=== PATIENT | male | born 1955 | race Caucasian/White ===

== ENCOUNTER 2017-07-05 21:02 | Inpatient (IN) | payer BC ==
[~2017-07-05] VITALS: Ht 180.3 cm; Wt 104.8 kg
--- NOTE | ~2017-07-05 | CON ---
[place], [place] REPORT OF CONS[facility]ATION [id number] #: [id number] ROOM: 428 DOCTOR: KRISTEL BRADSHAW MD BIRTHDATE: [birth year] DOS: 07/06/2017 HISTORY OF PRESENT ILLNESS: This is a 62-year-old -[place] man with a history of coronary artery disease. In 1998, he had 2 stents deployed while a patient at [facility]. He has never had heart failure, any rhythm disorder, stroke, diabetes mellitus, cancer, COPD or kidney problems. He used to smoke cigars a long time ago, but no longer uses it. He had a stress test earlier last year and that was unremarkable. He came to the hospital because of acute anterior chest discomfort and heaviness along with some left shoulder discomfort, which he had stents deployed in 1998. His symptoms were more intense at that time. He has had these symptoms with exertion, which also causes shortness of breath. In fact, symptoms have been present since September of last year and have been gradually more noticeable. Also, sometimes the feeling can last for many, many hours, sometimes just for 10 minutes and it is not accompanied by palpitations, any dizziness or loss of consciousness. No sweating or nausea either. According to him and his , it seems that he has slowed down significantly because of his symptoms. HOME MEDICATIONS: Aspirin 81, atorvastatin 40 daily, ibuprofen 800 mg t.i.d. p.r.n., omeprazole 20 mg 2 tablets daily. FAMILY HISTORY: Both parents had coronary artery disease and heart attacks. PHYSICAL EXAMINATION: GENERAL: The patient is very pleasant, alert, oriented, very comfortable. He is not anemic. There is no finger clubbing or thyromegaly. VITAL SIGNS: Pulse is regular at 66 beats per minute, blood pressure 166/98, previous blood pressure has been lower. NECK: Normal JVP. No bruit in the neck. CARDIOVASCULAR: There is no cardiomegaly. Auscultation did not reveal any murmurs or rubs. He has excellent pedal pulses and no edema in the lower extremities. CHEST: Lungs are clear to percussion and auscultation. He is not tachypneic. ABDOMEN: Normal bowel sounds. No bruit. There is no organomegaly or any pulsatile mass. Two ECGs have shown normal sinus rhythm with a normal pattern. Troponin I level was less than 0.015 on admission and zoe to 0.055 and 0.098 and the last one was 0.528. BUN 17, creatinine 1.03, sodium 140, potassium 3.6, magnesium 2.0. IMPRESSION: This patient has acute coronary syndrome/possible non-ST elevation myocardial infarction. His symptoms are worrisome and therefore, I would forfeit any idea of any idea of doing a stress test and directly perform a diagnostic heart catheterization and I suspect significant coronary artery stenosis. [place], [place] REPORT OF CONSULTATION NAME: AURE LAGOS JR UNIT #: [id number] ROOM: 428 DOCTOR: LEEANN RICHARDSON,KRISTEL BIRTHDATE: [birth year] I discussed this Impression with the and the patient and recommended that an invasive evaluation be performed. The patient will think about it. He may want to go to [facility] [place] and he will let his attending know. I thank you on behalf of Dr. Mejía for this consult. KRISTEL BRADSHAW MD CM:CONSTR:REPORT OF CONSULTATION 1757 07/07/17 0119 interface
[~2017-07-05 21:02] MED LIST: ASPIRIN ADULT L81 M1 PO; LIPITOR40 MG PO; PRILOSEC20 M1 PO
[2017-07-05 21:10] VITALS: BP 157/104
[2017-07-05 21:44] LABS: BASO # 0.1 10*3/uL (0.0-0.1); BASO % 0.8 % (0.0-1.0); EOS # 0.3 10*3/uL (0.0-0.4); EOS % 3.1 % (1.0-4.0); HEMATOCRIT 45.5 % (42.0-52.0); HEMOGLOBIN 15.6 g/dl (14.0-18.0); LYMPH # 2.4 10*3/uL (1.3-4.4); LYMPH % 30.6 % (27.0-41.0); MEAN CELL VOLUME 83.3 fl (80.0-94.0); MEAN CORPUSCULAR HGB 28.6 pg (27.0-31.0); MEAN CORPUSCULAR HGB CONC 34.3 g/dl (33.0-37.0); MEAN PLATELET VOLUME 8.8 fl (9.6-12.3); MONO # 0.6 10*3/uL (0.1-1.0); MONO % 7.4 % (3.0-9.0); NEUT # 4.6 10*3/uL (2.3-7.9); NEUT % 57.7 % (47.0-73.0); PLATELET COUNT AUTOMATED 233 10*3/uL (130-400); RED BLOOD COUNT 5.46 10*6/uL (4.50-5.90); RED CELL DISTRI WIDTH 13.6 % (0-14.5)
[2017-07-05 21:52] LABS: ACT PARTIAL THROMBO TIME 25.2 SECONDS (20.8-31.5)
--- NOTE | 2017-07-05 21:53 | NUR ---
PT REPORTED CHEST PAIN. DR STOUT NOTIFIED AND NITRO PATCH GIVEN
[2017-07-05 22:01] LABS: ALBUMIN 3.4 gm/dl (3.1-4.5); ALKALINE PHOSPHATASE 100 U/L (45-117); BUN 17 mg/dl (7-24); CHLORIDE 106 mmol/L (98-107); CREATININE 1.03 mg/dL (0.70-1.30); POTASSIUM 3.6 mmol/L (3.5-5.1); SGOT/AST 19 IU/L (3-35); SGPT/ALT 35 U/L (12-78); SODIUM 140 mmol/L (136-145); TOTAL PROTEIN 7.1 gm/dL (6.4-8.2)
[2017-07-05 22:02] LABS: TROPONIN I < 0.015 ng/ml (<0.045)
[2017-07-05 22:34] VITALS: BP 137/87
--- NOTE | 2017-07-05 23:01 | NUR ---
PT STATES HE FEELS RELIEF IN CHEST PAIN PRIOR TO TRANSPORT
[2017-07-05 23:09] VITALS: BP 127/82
--- NOTE | 2017-07-05 23:18 | NUR ---
PATIENT ARRIVED IN ROOM VIA WHEELCHAIR FROM THE ER ORIENTED TO ROOM AND CALL LIGHT LEFT FOR HOME WILL CALL IF NEEDED
[2017-07-06] VITALS (7 sets, daily range): BP systolic 127–166; BP diastolic 82–98
--- NOTE | 2017-07-06 00:39 | NUR ---
CALLLED DR JOYNER MADE HIM AWARE PATIENTS TROPONIN CAME BACK AT 0.055 NO NEW ORDERS WERE RECEIVED
--- NOTE | 2017-07-06 03:11 | NUR ---
CALLED AND MADE DR JOYNER AWARE PATIENTS TROPONIN IS CURRENTLY 0.098 NO ORDERS WERE RECEIVED AT THIS TIME
--- NOTE | 2017-07-06 03:12 | NUR ---
PATIENT IS ASYMPTOMATIC AT THIS TIME DR AWARE OF ELEVAATED TROPONIN LEVEL
[2017-07-06 06:24] LABS: BASO # 0.1 10*3/uL (0.0-0.1); BASO % 0.7 % (0.0-1.0); EOS # 0.3 10*3/uL (0.0-0.4); EOS % 3.2 % (1.0-4.0); HEMATOCRIT 45.8 % (42.0-52.0); HEMOGLOBIN 15.4 g/dl (14.0-18.0); LYMPH # 1.8 10*3/uL (1.3-4.4); MEAN CELL VOLUME 84.2 fl (80.0-94.0); MEAN CORPUSCULAR HGB 28.3 pg (27.0-31.0); MEAN CORPUSCULAR HGB CONC 33.6 g/dl (33.0-37.0); MEAN PLATELET VOLUME 9.1 fl (9.6-12.3); MONO # 0.7 10*3/uL (0.1-1.0); NEUT # 5.3 10*3/uL (2.3-7.9); NEUT % 65.9 % (47.0-73.0); PLATELET COUNT AUTOMATED 220 10*3/uL (130-400); RED BLOOD COUNT 5.44 10*6/uL (4.50-5.90); RED CELL DISTRI WIDTH 13.8 % (0-14.5); WHITE BLOOD COUNT 8.1 10*3/uL (4.8-10.8)
[2017-07-06 06:55] LABS: ACT PARTIAL THROMBO TIME 25.9 SECONDS (20.8-31.5)
[2017-07-06 06:58] LABS: ALBUMIN 3.3 gm/dl (3.1-4.5); ALKALINE PHOSPHATASE 87 U/L (45-117); BUN 18 mg/dl (7-24); CHLORIDE 106 mmol/L (98-107); CHOLESTEROL 143 mg/dL (<200); CREATININE 0.96 mg/dL (0.70-1.30); FREE T4 0.78 ng/dl (0.76-1.46); HDL CHOLESTEROL 40 mg/dl (40-60); LDL CHOLESTEROL 64 mg/dL (9-159); MAGNESIUM 2.1 mg/dL (1.5-2.1); PHOSPHOROUS 2.8 mg/dL (2.5-4.9); POTASSIUM 3.8 mmol/L (3.5-5.1); SGOT/AST 20 IU/L (3-35); SGPT/ALT 29 U/L (12-78); SODIUM 141 mmol/L (136-145); TOTAL PROTEIN 6.5 gm/dL (6.4-8.2); TRIGLYCERIDES 193 mg/dl (<150); VLDL CHOLESTEROL 39 mg/dL (6-40)
--- NOTE | 2017-07-06 07:10 | NUR ---
SPOKE WITH DR GOLDBERG. HE ORDERED A STRESS TEST FOR TOMORROW MORNING.
--- NOTE | 2017-07-06 07:48 | NUR ---
Shift chart check completed.
--- NOTE | 2017-07-06 08:30 | NUR ---
Ski Lift Mechanic in to talk to patient. Patient states lives at [address] with HIS . There are 12 steps in the home. Physician: DR MURILLO Pharmacy: [facility] Home health services: NONE Patient's level of ADLs: INDEPENDENT Patient has working utilities: YES DME: NONE Follow-up physician's appointment after d/c: WILL BE MADE PRIOR TO DC Does patient want to access PORTAL?: Discharge plan HOME. WAQAS LEE
--- NOTE | 2017-07-06 09:51 | NUR ---
SPOKE WITH DR GOLDBERG. HE IS NOT COMFORTABLE WITH PATIENT LEAVING AND COMING BACK AN OUTPATIENT WITH AN ELEVATED TROPONIN. DR MAYA IS AWARE.
[2017-07-06] MEDS ORDERED: IBU800 MG PO (10:11)
--- NOTE | 2017-07-06 10:11 | NUR ---
MEDS VERIFIED WITH KECIA AT [facility]
--- NOTE | 2017-07-06 10:13 | NUR ---
DR MAYA AWARE THAT MEDS WERE VERIFIED
--- NOTE | 2017-07-06 14:30 | NUR ---
NOTIFIED DR RAMIREZ AND DR GOLDBERG THAT PATIENT HAS AN ELEVATED TROPONIN.
--- NOTE | 2017-07-06 15:07 | NUR ---
SPOKE WITH DR BRADSHAW. HE STATED HE WOULD BE INTO SEE THE PATIENT BETWEEN 5-6
--- NOTE | 2017-07-06 18:32 | NUR ---
DR BABIN AWARE OF ELEVATED TROPNIN LEVEL AND THAT PATIENT REQUESTED TRANSFER TO [facility].
[2017-07-06] MEDS ORDERED: ASPIRIN325 MG PO (19:02)
[2017-07-06] MEDS ORDERED: ATORVASTATIN CA80 M1 PO (19:02)
[2017-07-06] MEDS ORDERED: ENOXAPARIN100 MG/1 M SC (19:02)
[2017-07-06] MEDS ORDERED: CLOPIDOGREL75 MG PO (19:02)
--- NOTE | 2017-07-06 21:46 | NUR ---
REPORT GIVEN TO NATHALIE [facility] [address] AT .
--- NOTE | 2017-07-06 22:15 | NUR ---
Discharge instructions reviewed with patient/family. Patient receptive and verbalizes understanding. Follow-up care arranged. Written instructions given to patient/family. CRISTIANE CHAHAL
== END 2017-07-06 22:15 | disposition short-term general hospital (02) | DRG 281 ==
LOC: ED 21:02 → EDHOLD 22:14 → 4E 22:14
PROVIDERS: Hospitalist; Student in an Organized Health Care Education/Training Program; ADMIT Internal Medicine
DX: I21.4 Non-ST elevation (NSTEMI) myocardial infarction (principal); E44.0 Moderate protein-calorie malnutrition; E78.5 Hyperlipidemia, unspecified; K21.9 Gastro-esophageal reflux disease without esophagitis; E66.9 Obesity, unspecified; I25.118 Atherosclerotic heart disease of native coronary artery with other forms of angina pectoris; R73.03 Prediabetes; R73.9 Hyperglycemia, unspecified; R00.1 Bradycardia, unspecified; Z95.5 Presence of coronary angioplasty implant and graft; Z79.82 Long term (current) use of aspirin; Z79.899 Other long term (current) drug therapy; Z83.3 Family history of diabetes mellitus; Z71.6 Tobacco abuse counseling; Z82.49 Family history of ischemic heart disease and other diseases of the circulatory system; Z68.32 Body mass index [BMI] 32.0-32.9, adult

== ENCOUNTER → 2022-05-13 | Outpatient (CLI) | payer MEDICARE ==
[~2022-05-13] MED LIST changes: +ASPIRIN325 MG PO; +ATORVASTATIN CA80 M1 PO; +CLOPIDOGREL75 MG PO; +ENOXAPARIN100 MG/1 M SC; +IBU800 MG PO
[2022-05-13 07:40] LABS: BUN 18 mg/dl (7-24); CHLORIDE 108 mmol/L (98-107); CHOLESTEROL 128 mg/dL (<200); CREATININE 0.88 mg/dL (0.70-1.30); LDL CHOLESTEROL 47 mg/dL (9-159); SODIUM 139 mmol/L (136-145); TRIGLYCERIDES 157 mg/dl (<150)
== END ==
LOC: LAB 07:07
PROVIDERS: ATTEND Family Medicine
DX: I10 Essential (primary) hypertension (principal); E78.2 Mixed hyperlipidemia; I25.10 Atherosclerotic heart disease of native coronary artery without angina pectoris

== ENCOUNTER → 2022-07-28 | Day surgery (SDC) | payer MEDICARE ==
[2022-07-24 14:08] VITALS: BP 167/87
[~2022-07-28] VITALS: Ht 177.8 cm; Wt 77.1 kg
[~2022-07-28] MED LIST changes: +CARAFATE1 G1 PO; +COLACE100 MG PO; +COREG3.125 MG PO; +GOOD SENSE ACID20 MG PO; +Meclizine25 MG PO; +ONDANSETRON HYDR4 M1 PO; +PERCOCET 5-3251 EACH PO; +REVATIO20 MG PO; +VIVITROL380 MG PO; +WELLBUTRIN SR150 MG PO; +ZALEPLON10 MG PO
[2022-07-28 10:30] VITALS: BP 105/73
[2022-07-28 12:01] VITALS: BP 161/92
[2022-07-28 12:06] VITALS: BP 150/79
[2022-07-28 12:24] VITALS: BP 141/88
[2022-07-28 12:36] VITALS: BP 141/85
[2022-07-28 12:51] VITALS: BP 132/83
== END | disposition home or self-care (01) ==
LOC: SDC 07-24 13:15
PROVIDERS: ATTEND Surgery
DX: K40.00 Bilateral inguinal hernia, with obstruction, without gangrene, not specified as recurrent (principal); I25.10 Atherosclerotic heart disease of native coronary artery without angina pectoris; E78.00 Pure hypercholesterolemia, unspecified; K21.9 Gastro-esophageal reflux disease without esophagitis; I10 Essential (primary) hypertension; I25.2 Old myocardial infarction; Z87.891 Personal history of nicotine dependence; Z95.5 Presence of coronary angioplasty implant and graft; Z79.899 Other long term (current) drug therapy

== ENCOUNTER → 2022-12-23 | Outpatient (CLI) | payer MEDICARE ==
[2022-12-23 08:09] LABS: BUN 17 mg/dl (9-23); CHLORIDE 110 mmol/L (98-107); CHOLESTEROL 126 mg/dL (<200); LDL CHOLESTEROL 54 mg/dL (9-159); POTASSIUM 3.8 mmol/L (3.4-5.1); THYROID STIM HORMONE (HS) 4.956 uIU/ml (0.550-4.780); TRIGLYCERIDES 118 mg/dl (<150)
== END | disposition home or self-care (01) ==
LOC: LAB 07:22
PROVIDERS: ATTEND Family Medicine
DX: I10 Essential (primary) hypertension (principal); E78.2 Mixed hyperlipidemia; R73.9 Hyperglycemia, unspecified

== ENCOUNTER → 2024-04-19 | Outpatient (CLI) | payer MEDICARE ==
[2024-04-19 09:57] LABS: CHOLESTEROL 120 mg/dL (<200); LDL CHOLESTEROL 61 mg/dL (9-159); TRIGLYCERIDES 110 mg/dl (<150)
== END ==
LOC: LAB 08:27
PROVIDERS: ATTEND Internal Medicine Cardiovascular Disease
DX: I25.10 Atherosclerotic heart disease of native coronary artery without angina pectoris (principal)

== ENCOUNTER → 2024-07-11 | Outpatient (CLI) | payer MEDICARE ==
[2024-07-11 07:55] LABS: BASO # 0.1 10*3/uL (0.0-0.1); BASO % 0.7 % (0.0-1.0); EOS # 0.2 10*3/uL (0.0-0.4); EOS % 2.1 % (1.0-4.0); HEMATOCRIT 48.6 % (42.0-52.0); LYMPH # 1.4 10*3/uL (1.3-4.4); LYMPH % 17.3 % (27.0-41.0); MEAN CELL VOLUME 86.8 fl (80.0-94.0); MEAN CORPUSCULAR HGB 28.2 pg (27.0-31.0); MEAN CORPUSCULAR HGB CONC 32.5 g/dl (33.0-37.0); MONO # 0.7 10*3/uL (0.1-1.0); MONO % 8.1 % (3.0-9.0); NEUT # 5.8 10*3/uL (2.3-7.9); NEUT % 71.4 % (47.0-73.0); PLATELET COUNT AUTOMATED 231 10*3/uL (130-400); RED CELL DISTRI WIDTH 13.7 % (0-14.5); WHITE BLOOD COUNT 8.1 10*3/uL (4.8-10.8)
[2024-07-11 08:37] LABS: BUN 16 mg/dl (9-23)
[2024-07-11 08:38] LABS: ALKALINE PHOSPHATASE 85 U/L (46-116); CHLORIDE 106 mmol/L (98-107); CHOLESTEROL 145 mg/dL (<200); FREE T4 1.02 ng/dl (0.89-1.76); LDL CHOLESTEROL 74 mg/dL (9-159); POTASSIUM 4.1 mmol/L (3.4-5.1); SGPT/ALT 24 U/L (5-49); TOTAL PROTEIN 6.9 gm/dL (6.0-8.0); TRIGLYCERIDES 122 mg/dl (<150); VITAMIN D, 25-HYDROXY 36.3 ng/mL (30-100)
== END | disposition home or self-care (01) ==
LOC: LAB 07:41
PROVIDERS: ATTEND Internal Medicine
DX: Z12.5 Encounter for screening for malignant neoplasm of prostate (principal); R53.83 Other fatigue; E53.9 Vitamin B deficiency, unspecified; E55.9 Vitamin D deficiency, unspecified; E78.2 Mixed hyperlipidemia; R12 Heartburn; I51.9 Heart disease, unspecified